=== PATIENT | male | born 1955 | race American Indian/Alaskan Native ===

== ENCOUNTER 2020-07-01 12:44 | Emergency (ER) | payer OTHER ==
[~2020-07-01] VITALS: Ht 162.6 cm; Wt 72.6 kg
[2020-07-01 12:45] VITALS: TEMP 99
[2020-07-01 13:05] LABS: PLATELET COUNT 238 K/uL (142-355)
[2020-07-01 13:11] LABS: POTASSIUM 5.3 mmol/L (3.6-5.2); SODIUM 135 mmol/L (136-145)
[2020-07-01 13:23] LABS: PARTIAL THROMBOPLASTIN TIME 28.4 SECONDS (24.5-33.6)
[2020-07-01 14:45] VITALS: BP 144/88
== END 2020-07-01 14:49 | disposition home or self-care (01) ==
LOC: ED 12:44
PROVIDERS: Family Medicine
DX: J01.80 Other acute sinusitis (principal)
CPT/HCPCS: 36415; 80053; 82550; 84484; 85027; 85610; 85730; 96365; 99284; J0696

== ENCOUNTER 2022-02-16 19:25 | Emergency (ER) | payer OTHER ==
[~2022-02-16] VITALS: Ht 160 cm; Wt 68.9 kg
[2022-02-16 20:10] LABS: PLATELET COUNT 173 K/uL (142-355)
[2022-02-16 20:19] LABS: POTASSIUM 4.3 mmol/L (3.6-5.2)
[2022-02-16 22:07] VITALS: BP 150/80; TEMP 98.2
== END 2022-02-16 22:07 | disposition home or self-care (01) ==
LOC: ED 19:25
PROVIDERS: Emergency Medicine Emergency Medical Services
DX: R10.33 Periumbilical pain (principal); K31.84 Gastroparesis
CPT/HCPCS: 36415; 80053; 81002; 82150; 83690; 85027; 96360; 96374; 96375; 99284; J2270; J2405; J3490; Q9963